=== PATIENT | female | born 1970 | race Caucasian/White ===

== ENCOUNTER 2023-02-06 05:46 | Emergency (ER) | payer MEDICARE, MEDICAID, SELFPAY ==
[2023-02-06 05:49] VITALS: BP 149/83; PULSE 98; RESP 15; TEMP 36.4; O2SAT 100
--- NOTE | 2023-02-06 07:02 | ED.GENADULT ---
HPI - General Adult General Chief complaint: Skin/Abscess/Foreign Body Stated complaint: rash on chest, back, arms, legs, face Time Seen by Provider: 02/06/23 06:01 History of Present Illness HPI narrative: Patient is a 52-year-old female who presents ER with rash. Ongoing since August of this year. Symptoms initially began on her chest and then spread to her back as well as her arms and spots of her legs. When patient was originally hospitalized she was having hypoxia that she reports was related to COPD. She denies any diagnosis of a autoimmune lung disease or other autoimmune disorder. She is scheduled to follow-up with dermatology in 10 days and with rheumatology in 3 months. No fevers or chills or sweats. She has been treated with steroids as well as antifungals. The rash is tender to touch. Patient does not feel is particularly pruritic. She does not feel like it is affected by sunlight. Related Data Home Medications Medication Instructions Recorded Confirmed alprazolam 1 mg tablet 1 mg PO TID 07/15/19 07/15/19 bupropion HCl 300 mg 24 hr tablet, 300 mg PO QAM 07/15/19 07/15/19 extended release diclofenac sodium 75 mg 75 mg PO BID 07/15/19 07/15/19 tablet,delayed release omeprazole 20 mg capsule,delayed 20 mg PO DAILY 07/15/19 07/15/19 release oxcarbazepine 600 mg tablet 600 mg PO BID 07/15/19 07/15/19 trazodone 100 mg tablet 100 mg PO BID 07/15/19 07/15/19 venlafaxine 150 mg 150 mg PO BID 07/15/19 07/15/19 capsule,extended release 24 hr Allergies Allergy/AdvReac Type Severity Reaction Status Date / Time ceftriaxone Allergy Severe Anaphylaxis Verified 02/06/23 05:59 Review of Systems Review of Systems: All systems reviewed & are unremarkable except as noted in HPI and below Constitutional: Constitutional: Denies chills and Denies fever(s) ENT: Denies nasal congestion and Denies sore throat Cardiovascular: Cardiovascular: Denies chest pain, Denies rapid heart rate and Denies radiating jaw, neck or arm pain Respiratory: Respiratory: Denies cough and Denies dyspnea Integumentary/Breasts: Skin/Breast: Denies pruritus, Reports erythema, Reports rash and Denies skin ulcer PMFSH Past Medical History Medical History (Updated 02/06/23 @ 07:26 by Pb Hdz MD) Depression GERD (gastroesophageal reflux disease) Family History Family History Mother Family history of chronic obstructive pulmonary disease Family history of diabetes mellitus in first degree relative Social History Social History Smoking status: Never smoker Alcohol intake: never Exam Narrative: GENERAL: Well-appearing, well-nourished, and in no acute distress. HEAD: Normocephalic, atraumatic. ENT: Mucous membranes moist. CHEST: Clear to auscultation. No respiratory distress. HEART: Regular rate and rhythm. Normal peripheral pulses. EXTREMITIES: Normal range of motion. No edema. SKIN: Warm, dry. Rash most prominent to the chest and back. Annular lesions with central clearing and blanching erythematous periphery. Occasional plaque especially right posterior shoulder. No purulent drainage. No increased warmth. Rash to the arm is mainly at the forearm region and not over the elbows or antecubital fossa. NEURO: Alert and oriented x3. PSYCH: Normal mood and affect. Course Course Emergency Course: Patient resting comfortably. Discussed possibilities that the rash could be related to lupus or sarcoidosis. Recommend she continue to have her follow-up with dermatology. She will be started on another course of steroids in the interim. Patient verbalized understanding. Discharge home. Vital Signs Vital signs: Vital Signs Temperature 97.6 F 02/06/23 05:49 Pulse Rate 98 02/06/23 05:49 Respiratory Rate 15 02/06/23 05:49 Blood Pressure 149/83 H 02/06/23 05:49 Pulse Oximetry 100 07
== END 2023-02-06 07:38 | disposition home or self-care (01) ==
PROVIDERS: Emergency Provider Emergency Medicine; PCP Family Medicine
DX: L30.8 Other specified dermatitis (principal)
CPT/HCPCS: 99283

== ENCOUNTER 2023-04-30 11:21 | Outpatient (CLI) | payer MEDICARE, MEDICAID, SELFPAY ==
[2023-04-30 12:38] LABS: Alanine Aminotransferase 16 U/L (6-35); Albumin Level 4.2 g/dL (3.5-5.1); Alkaline Phosphatase 102 U/L (38-126); Anion Gap 10 mmol/L (8-16); Aspartate Amino Transferase 27 U/L (14-36); Bilirubin,Total 0.5 mg/dL (0.2-1.3); Blood Urea Nitrogen 10 mg/dL (7-17); Calcium 8.8 mg/dL (8.4-10.2); Carbon Dioxide 25 mmol/L (22-30); Chloride 101 mmol/L (98-107); Creatine Kinase 76 U/L (30-135); Estimated Glomerular Filt Rate > 60; Glucose 92 mg/dL (65-110); Potassium 3.8 mmol/L (3.4-5.0); Sodium 136 mmol/L (137-145)
[2023-05-04 17:46] LABS: Myeloperoxidase Antibody <1.0 AI (<1.0); Proteinase 3 PR3 Antibodies <1.0 AI (<1.0)
[2023-05-06 04:42] LABS: Aldolase 4.3 U/L (<=8.1)
[2023-05-08 13:17] LABS: Angiotensin Converting Enzyme 27.5 U/L (9-67)
[2023-05-09 21:12] LABS: JO-1 AB <11 SI (<11); MI-2 Alpha Ab <11 SI (<11); MI-2 Beta Ab <11 SI (<11); NXP-2 AB <11 SI (<11); TIF1 Gamma Ab <11 SI (<11)
== END 2023-04-30 11:22 | disposition home or self-care (01) ==
PROVIDERS: Internal Medicine; PCP Family Medicine; Visit Provider Internal Medicine Hematology & Oncology
DX: M32.9 Systemic lupus erythematosus, unspecified (principal)
CPT/HCPCS: 36415; 80053; 82085; 82164; 82550; 84182; 86036

== ENCOUNTER 2023-06-22 09:49 | Outpatient (CLI) | payer MEDICARE, MEDICAID, SELFPAY ==
[2023-06-22 10:25] LABS: Basophils Percent Auto 0.5 % (0.2-1.2); Eosinophils Absolute Auto 0.1 K/mm3 (0-0.3); Eosinophils Percent Auto 1.5 % (0-4.4); Hematocrit 45.7 % (37.0-47.0); Hemoglobin 14.8 g/dL (12.0-15.0); Immature Granulocyte Absolute 0.03 K/mm3 (0.00-0.031); Immature Granulocyte Percent A 0.4 % (0-0.5); Lymphocytes Absolute Auto 1.41 K/mm3 (0.9-3.2); Lymphocytes Percent Auto 17.2 % (18.3-44.2); Mean Corpuscular HGB Conc 32.4 g/dl (32-36); Mean Corpuscular Hemoglobin 30.7 pg (26-34); Mean Corpuscular Volume 94.8 fl (80-100); Mean Platelet Volume 9.7 fl (7.4-10.4); Monocytes Absolute Auto 0.4 K/mm3 (0.1-0.6); Monocytes Percent Auto 5.2 % (2.6-8.5); Neutrophils Absolute Auto 6.2 K/mm3 (1.3-6.7); Neutrophils Percent Auto 75.2 % (45.5-73.1); Platelet Count Result 175 k/mm3 (150-375); Red Blood Count 4.82 M/mm3 (4.2-5.4); Red Cell Distribution Width 19.2 % (11.5-14.5); White Blood Count 8.2 K/mm3 (4.5-10.0)
[2023-06-22 12:53] LABS: Erythrocyte Sedimentation Rate 8 mm/hr (0-20)
[2023-06-22 17:03] LABS: Appearance Urine Clear (Clear); Bilirubin Urine Negative (Negative); Blood Urine Negative (Negative); Color Urine Yellow (Yellow); Glucose Urine UA Negative (Negative); Ketones Urine Negative (Negative); Leukocyte Esterase Ur Negative LEU/UL (Negative); Nitrate Urine Negative (Negative); Protein Urine Negative (Negative); Specific Grav Ur 1.015 (1.001-1.035); Urobilinogen Urine 0.2 mg/dL (<2.0)
[2023-06-22 17:05] LABS: Add Urine Microscopic? NO
[2023-06-22 17:25] LABS: Hepatitis B Surface Antigen Negative (Negative)
[2023-06-22 17:42] LABS: Hepatitis B Surface Anti Res Negative
[2023-06-22 17:48] LABS: Vitamin D 25 Hydroxy 25.5 ng/mL
[2023-06-22 17:51] LABS: Creatinine Urine 45.2 mg/dL; Total Protein Urine Random 11 mg/dL; Ur Ttl Prot Creatinine Ratio 0.24 mg/mg (0-0.20)
[2023-06-22 18:11] LABS: Hepatitis C Virus Antibody Reactive (Negative)
[2023-06-22 22:08] LABS: Alanine Aminotransferase 16 U/L (6-35); Albumin Level 4.4 g/dL (3.5-5.1); Alkaline Phosphatase 101 U/L (38-126); Anion Gap 11 mmol/L (8-16); Aspartate Amino Transferase 29 U/L (14-36); Bilirubin,Total 0.3 mg/dL (0.2-1.3); Blood Urea Nitrogen 13 mg/dL (7-17); CRP 0.8 mg/dL (<1.0); Calcium 8.9 mg/dL (8.4-10.2); Carbon Dioxide 27 mmol/L (22-30); Chloride 101 mmol/L (98-107); Estimated Glomerular Filt Rate > 60; Potassium 4.6 mmol/L (3.4-5.0); Sodium 139 mmol/L (137-145); Uric Acid 3.3 mg/dL (2.5-7.5)
[2023-06-24 10:30] LABS: Glucose 51 mg/dL (65-110)
[2023-06-25 10:31] LABS: Lupus dRVVT Screen 34 sec (<=45); PTT-LA Screen 27 sec (<=40)
[2023-06-25 10:45] LABS: Anti Cardio Antibody IgM <2.0 MPL-U/mL (<20.0); Anti Cardiolipin Antibody IgA <2.0 APL-U/mL (<20.0); Anti Cardiolipin Antibody IgG <2.0 GPL-U/mL (<20.0)
[2023-06-25 13:28] LABS: NIL 0.03 IU/mL; Quantiferon TB Plus, 1T NEGATIVE (NEGATIVE)
[2023-06-25 17:09] LABS: Hepatitis C RNA, Quant PCR <15 IU/mL
== END 2023-06-22 09:50 | disposition home or self-care (01) ==
LOC: ANHLAB 09:53
PROVIDERS: PCP Family Medicine; Visit Provider Internal Medicine
DX: M06.041 Rheumatoid arthritis without rheumatoid factor, right hand (principal); M06.042 Rheumatoid arthritis without rheumatoid factor, left hand; M32.9 Systemic lupus erythematosus, unspecified; Z11.59 Encounter for screening for other viral diseases; M19.90 Unspecified osteoarthritis, unspecified site; Z79.899 Other long term (current) drug therapy
CPT/HCPCS: 36415; 80053; 81003; 82306; 82570; 84156; 84550; 85025; 85613; 85652; 85730; 86140; 86146; 86147; 86480; 86706; 86803; 87340; 87522